=== PATIENT | male | born 1980 ===

== ENCOUNTER 2016-09-30 22:43 | Observation (INO) | payer SELFPAY ==
[2016-09-30 22:44] VITALS: BMI 25.5
[2016-09-30 22:51] VITALS: PULSE 80; RESP 18; TEMP 97.2; O2SAT 98
--- NOTE | 2016-09-30 23:10 | ED PDOC ---
HPI: Psych/Substance Abuse Time Seen by Provider: 09/30/16 22:56 Chief Complaint (Nursing): Alcohol Ingestion Chief Complaint (Provider): Alcohol ingestion ED Caveat: Intoxicated, Uncooperative History Per: Patient History/Exam Limitations: intoxication Onset/Duration Of Symptoms: Unknown Current Symptoms Are (Timing): Still Present Modifying Factor(s): Alcohol Severity: Moderate Additional Complaint(s): 36 year old male is brought into the ED by EMS for intoxication. Unable to obtain HPI due to intoxication. Past Medical History Reviewed: Unable To Obtain (due to intoxication) Vital Signs: Last Vital Signs Temp 97.2 F L 09/30/16 22:50 Pulse 80 09/30/16 22:50 Resp 18 09/30/16 22:50 BP Pulse Ox 98 09/30/16 22:50 - Family History Family History: States: Unknown Family Hx - Home Medications Home Medications: Ambulatory Orders Medication Instructions Recorded Cephalexin 500 mg PO BID #14 cap 11/01/14 - Allergies Allergies/Adverse Reactions: Allergies Allergy/AdvReac Type Severity Reaction Status Date / Time No Known Allergies Allergy Verified 11/01/14 00:17 Review of Systems Review Of Systems: ROS cannot be obtained secondary to pt's inabilty to answer questions. (due to intoxication) Physical Exam - Reviewed Nursing Documentation Reviewed: Yes Vital Signs Reviewed: Yes - Physical Exam Appears: Positive for: Non-toxic, No Acute Distress. Negative for: Well ( intoxicated. slurred speech. alcohol on breath. no signs of trauma) Head Exam: Positive for: ATRAUMATIC, NORMOCEPHALIC (+) Skin: Positive for: Normal Color, Warm, Dry Cardiovascular/Chest: Positive for: Regular Rate, Rhythm Respiratory: Positive for: Normal Breath Sounds. Negative for: Respiratory Distress Neurologic/Psych: Positive for: Alert, Oriented (3x) - ECG O2 Sat by Pulse Oximetry: 98 (RA) Pulse Ox Interpretation: Normal Medical Decision Making Medical Decision Makin:56 Initial impression: 36 year old male is intoxicated. Initial plan: * alcohol serum * drug screen urinary * accucheck * reevaluation 23:03 Patient will be placed into ED observation pending clinical sobriety. See ED obs note for further updates. Scribe Attestation: Documented by Leann Rosado, acting as a scribe for Ney PINTO Provider Scribe Attestation: All medical record entries made by the Scribe were at my direction and personally dictated by me. I have reviewed the chart and agree that the record accurately reflects my personal performance of the history, physical exam, medical decision making, and the department course for this patient. I have also personally directed, reviewed, and agree with the discharge instructions and disposition. ED OBSERVATION Discharge: Yes Date of observation admission: 09/30/16 Time of observation admission: 23:03 - Observation admission statement Patient is being placed in observation because:: for resolution of current symptoms - Goals of Observation Goals of observation are:: clinical sobriety - Progress Note Progress Note: 10/01/16 01:05 Patient is resting comfortably and his vitals are stable. Patient is still intoxicated. 10/01/16 01:41 Patient is sleeping comfortable and his vitals are stable. 10/01/16 06:22 Pt. is now awake and alert, walking with steady gait, will d/c home. Disposition - Clinical Impression Clinical Impression: Alcohol abuse - Disposition Disposition: Routine/Home Disposition Time: 06:22 Condition: STABLE
[2016-10-01 00:04] LABS: URINE BILIRUBIN NEGATIVE (NEGATIVE); URINE BLOOD NEGATIVE (NEGATIVE); URINE COLOR COLORLESS (YELLOW); URINE GLUCOSE (UA) NEG (Normal); URINE KETONE NEGATIVE (NEGATIVE); URINE LEUKOCYTE ESTERASE NEG Leu/uL (Negative); URINE PROTEIN NEGATIVE (NEGATIVE); URINE UROBILINOGEN 0.2-1.0 mg/dL (0.2-1.0)
[2016-10-01 03:19] VITALS: BP 98/60
== END 2016-10-01 05:15 | disposition home or self-care (01) ==
LOC: H.ER 22:43 → H.EROBSV 23:03
PROVIDERS: ADMIT Emergency Medicine; ATTEND Emergency Medicine
DX: F10.129 Alcohol abuse with intoxication, unspecified (principal); Y90.8 Blood alcohol level of 240 mg/100 ml or more
CPT/HCPCS: 36415; 81003; 82948; 99283; G0378; G0480